=== PATIENT | female | born 2000 | race American Indian/Alaskan Native ===

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

== ENCOUNTER 2022-02-24 00:07 | Emergency (ER) | payer OTHER ==
[2022-02-24] MEDS ORDERED: oxyCODONE /ACETAMINOPHEN 5-325MG TAB PO ONE (02:24)
[2022-02-24] MEDS ORDERED: predniSONE 20 MG TAB PO ONE (02:24)
[2022-02-24] MEDS ORDERED: KETOROLAC 10 MG TAB PO ONE (02:24)
[2022-02-24] MEDS ORDERED: AMOXICILLIN/K CLAV 875/125MG TAB PO ONE (02:24)
--- NOTE | 2022-02-24 02:58 | Emergency Department Report ---
ED ENT HPI - General Chief complaint: Dental/Oral Stated complaint: TOOTH INFECTION Time Seen by Provider: 02/24/22 02:22 Source: patient Mode of arrival: Ambulatory Limitations: No Limitations - History of Present Illness Initial comments: 21-year-old black female with no past medical history presents to the emergency department for evaluation of left facial swelling. She states that she has an abscess to her left upper tooth, was seen by dentist, started on amoxicillin 2 weeks ago, but has had increased pain and swelling to the area. She denies fever. MD complaint: tooth pain -: Gradual, week(s) (2) Location: tooth # (15) Severity: moderate Severity scale (0 -10): 6 Quality: aching Consistency: constant Associated Symptoms: toothache. denies: fever, cough, pain with swallowing, discharge from ear - Related Data Previous Rx's Medication Instructions Recorded Last Taken Type Nystatin/Triamcin 15 gm TP BID #1 cream..g. 06/05/18 Unknown Rx [Nystatin-Triamcinolone Cream] Acetaminophen/Codeine [Tylenol 1 tab PO Q6H PRN #12 tab 02/24/22 Unknown Rx /Codeine # 3 tab] Amoxicillin/K Clav Tab [Augmentin 1 tab PO Q12HR 7 Days #14 tab 02/24/22 Unknown Rx 875 mg] Ketorolac [Toradol] 10 mg PO Q6H PRN #12 tab 02/24/22 Unknown Rx Allergies Allergy/AdvReac Type Severity Reaction Status Date / Time No Known Allergies Allergy Unverified 06/05/18 20:06 ED Dental HPI - General Chief complaint: Dental/Oral Stated complaint: TOOTH INFECTION Time Seen by Provider: 02/24/22 02:22 Source: patient Mode of arrival: Ambulatory Limitations: No Limitations - Related Data Previous Rx's Medication Instructions Recorded Last Taken Type Nystatin/Triamcin 15 gm TP BID #1 cream..g. 06/05/18 Unknown Rx [Nystatin-Triamcinolone Cream] Acetaminophen/Codeine [Tylenol 1 tab PO Q6H PRN #12 tab 02/24/22 Unknown Rx /Codeine # 3 tab] Amoxicillin/K Clav Tab [Augmentin 1 tab PO Q12HR 7 Days #14 tab 02/24/22 Unknown Rx 875 mg] Ketorolac [Toradol] 10 mg PO Q6H PRN #12 tab 02/24/22 Unknown Rx Allergies Allergy/AdvReac Type Severity Reaction Status Date / Time No Known Allergies Allergy Unverified 06/05/18 20:06 ED Review of Systems ROS: Stated complaint: TOOTH INFECTION Other details as noted in HPI Comment: All other systems reviewed and negative Constitutional: denies: chills, fever ENT: dental pain Respiratory: denies: shortness of breath Cardiovascular: denies: chest pain Gastrointestinal: denies: abdominal pain, nausea, vomiting Neurological: denies: headache, weakness ED Past Medical Hx - Past Medical History Previous Medical History?: Yes - Surgical History Past Surgical History?: Yes - Social History Smoking Status: Unknown if ever smoked - Medications Home Medications: Home Medications Medication Instructions Recorded Confirmed Last Taken Type Nystatin/Triamcin 15 gm TP BID #1 cream..g. 06/05/18 Unknown Rx [Nystatin-Triamcinolone Cream] Acetaminophen/Codeine [Tylenol 1 tab PO Q6H PRN #12 tab 02/24/22 Unknown Rx /Codeine # 3 tab] Amoxicillin/K Clav Tab [Augmentin 1 tab PO Q12HR 7 Days #14 tab 02/24/22 Unknown Rx 875 mg] Ketorolac [Toradol] 10 mg PO Q6H PRN #12 tab 02/24/22 Unknown Rx ED Physical Exam - General Limitations: No Limitations General appearance: alert, in no apparent distress - Head Head exam: Present: atraumatic, normocephalic. Absent: normal inspection - Expanded Head Exam Expanded 1 - Erythema and edema noted - Eye Eye exam: Present: normal appearance. Absent: conjunctival injection - Expanded ENT Exam Expanded Teeth exam: Present: dental tenderness # (15), other (Abscess noted to gums migdalia und tooth #15) - Neck Neck exam: Present: lymphadenopathy. Absent: tenderness - Respiratory Respiratory exam: Absent: respiratory distress - Cardiovascular Cardiovascular Exam: Present: tachycardia - GI/Abdominal GI/Abdominal exam: Absent: distended, tenderness - Extremities Exam Extremities exam: Present: normal inspection - Back Exam Back exam: Present: normal inspection - Neurological Exam Neurological exam: Present: alert, oriented X3 - Psychiatric Psychiatric exam: Present: normal affect, normal mood - Skin Skin exam: Present: warm, dry, intact, normal color ED Course Vital Signs 02/24/22 02/24/22 00:26 03:17 Temperature 99.7 F H 98.6 F Pulse Rate 109 H 90 Respiratory 20 16 Rate Blood Pressure 128/81 Blood Pressure 126/68 [Right] O2 Sat by Pulse 100 98 Oximetry ED Medical Decision Making - Medical Decision Making 21-year-old black female with no past medical history presents to the emergency department for evaluation of left facial swelling. She states that she has an abscess to her left upper tooth, was seen by dentist, started on amoxicillin 2 weeks ago, but has had increased pain and swelling to the area. She denies fever. Physical exam consistent with abscess to tooth #15 along with facial cellulitis. Patient currently on amoxicillin, so she is advised to discontinue amoxicillin and start Augmentin. She will be discharged home with 7-day course of Augmentin along with Toradol and Tylenol 3 to use as directed. She is advised to follow-up with dentist as soon as possible for further evaluation and management. She is advised to return to the emergency department as needed. She verbalizes understanding of and agreement with plan of care. Critical care attestation.: If time is entered above; I have spent that time in minutes in the direct care of this critically ill patient, excluding procedure time. ED Disposition Clinical Impression: Dental abscess, Facial cellulitis Disposition: HOME / SELF CARE / HOMELESS Is pt being admited?: No Does the pt Need Aspirin: No Condition: Stable Instructions: Dental Abscess, [id number], Cellulitis, Adult, [id number], Preventive Dental Care, Adult Additional Instructions: Stop amoxicillin and ibuprofen. Start Augmentin and Toradol as prescribed. Follow-up with dentist in the next day or 2 for further evaluation and management. Return to the emergency department as needed. Prescriptions: Amoxicillin/K Clav Tab [Augmentin 875 mg] 1 tab PO Q12HR 7 Days #14 tab Ketorolac [Toradol] 10 mg PO Q6H PRN #12 tab PRN Reason: Pain Acetaminophen/Codeine [Tylenol /Codeine # 3 tab] 1 tab PO Q6H PRN #12 tab PRN Reason: Pain, Moderate (4-6) Referrals: [facility] [Outside] - 3-5 Days [facility] [Outside] - 3-5 Days Time of Disposition: 02:57
[2022-02-24 03:20] VITALS: BP 126/68
== END 2022-02-24 04:11 | disposition home or self-care (01) ==
LOC: ED 00:07
DX: K04.7 Periapical abscess without sinus (principal); L03.211 Cellulitis of face
CPT/HCPCS: 99282